=== PATIENT | female | born 1960 ===

== ENCOUNTER 2018-08-30 12:29 | Outpatient (CLI) | payer MEDICARE, OTHER | END 2018-08-30 12:30 | disposition home or self-care (01) | LOC: C.PAT 12:29 | DX: R31.0 Gross hematuria (principal) ==

== ENCOUNTER 2018-09-05 10:43 | Day surgery (SDC) | payer MEDICARE, OTHER ==
[2018-08-30 12:47] VITALS: BMI 37.5
[2018-09-05] MEDS ORDERED: Midazolam 2 MG/2 ML VIAL ONE (12:38)
[2018-09-05] MEDS ORDERED: Propofol 10 mg/ml Inj (20 ML) ONE (12:39)
[2018-09-05] MEDS ORDERED: Lidocaine 2% Jelly (Uro-Jet) ONE (12:54)
[2018-09-05] MEDS ORDERED: Iohexol 240 (50 ml) ONE (12:54)
[2018-09-05] MEDS ORDERED: Ciprofloxacin 400mg/200ml D5W 400 MG/200 ML BAG IVPB ONE (12:54)
[2018-09-05] MEDS ORDERED: Lactated Ringer's 1,000 ML IV SCH (13:30)
[2018-09-05 14:38] VITALS: TEMP 98; O2SAT 100
[2018-09-05 14:54] VITALS: BP 110/70; PULSE 81; RESP 18
--- NOTE | 2018-09-06 00:52 | OP ---
PROCEDURE DATE: 09/05/2018 PREOPERATIVE DIAGNOSIS: Hematuria with atypical cytology. POSTOPERATIVE DIAGNOSIS: Hematuria with atypical cytology. PROCEDURE PERFORMED: Cystoscopy, bladder biopsy, and fulguration. SURGEON: Sienna Harper MD DESCRIPTION OF PROCEDURE: The patient placed on the operating room table in a dorsal lithotomy position and given general anesthesia. The area of the groin was draped and prepped. Using a #21 cystoscope, I drained the bladder atraumatically. I identified the majority of the bladder wall which was all having normal character. In the dome of the bladder, there appeared to be just an area that was somewhat hyperemic. Certainly, no evidence of any formation. In this area of hyperemia, I took biopsy and sent it for specimen analysis. I went back and cauterized that area. Then, the patient was taken from the operating room in good condition. Blood loss was minimal. The patient was taken without any complications out of the operating room. Sienna Harper MD
== END 2018-09-05 16:06 | disposition home or self-care (01) ==
LOC: C.SDS 10:43
PROVIDERS: ATTEND Urology
DX: R31.0 Gross hematuria (principal)
CPT/HCPCS: 52204; 82948; 88305; J0744; J3010